=== PATIENT | female | born 2005 | race Caucasian/White ===

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

== ENCOUNTER 2023-05-15 06:32 | Inpatient (IN) ==
[2023-05-15] MEDS ORDERED: OXYTOCIN 30 UNITS/500 ML BAG IV PRN ×2 (08:02)
[2023-05-15] MEDS ORDERED: LIDOCAINE 1% LOCAL 20 ML VIAL INFIL PRN (08:02)
--- NOTE | 2023-05-15 08:11 | History & Physical Report ---
Date of Service May 15, 2023 Assessment & Plan (1) Amniotic fluid leaking: Plan: IUP at term with SPROM of clear fluid- grossly ruptured/ GBS negative will start pitocing induction epidural when requested anticipate vaginal History of Present Illness Primary Care Provider: NO PCP patient is a 18 yo EDC 05/16 who presents with gush of clear fluid at 0400 today. she has had some cramping since then but no regular contractions. complicated by GDM but non-compliant with checking blood sugars. last growth scan was AGA at 66%tile. good movement. GBS-negative Allergies Allergy/AdvReac Type Severity Reaction Status Date / Time No Known Drug Allergies Allergy Unknown Verified 05/15/23 07:08 Home Medications Medication Instructions Recorded Confirmed Type prenat.vits,rosangela,mkx-xrxa-fqjgk 1 tab PO DAILY 10/23/22 05/15/23 History pyridoxine (vitamin B6) PO 10/23/22 05/13/23 History omeprazole 40 mg capsule,delayed 40 mg PO DAILY #30 caps 04/12/23 05/15/23 Rx release Patient History Medical History (Updated 05/15/23 @ 08:14 by Rosy Simons MD, FACOG) Cardiac murmur no problems currently -- hx as an infant. Varicella vaccination Surgical History H/O wisdom tooth extraction (12/08/19) Removal of [place] Teeth Dr. Joseph 12-08-19 History of tonsillectomy and adenoidectomy 08/15/[address] Appiah Family History Uncle Family hx of colon cancer Grandfather (Paternal) Family hx of colon cancer Aunt FHx: breast cancer Breast cancer Grandmother (Maternal) Breast cancer Other No family history of adverse response to anesthesia Denies family history of Ovarian cancer Social History (Updated 10/23/22 @ 11:11 by Monie Thrasher) Smoking Status: Former smoker Tobacco Type: E-cigarettes / Vaping Second Hand Exposure: No; Do You Dip or Chew Tobacco: No; Hx Alcohol Use: No Hx Substance Use: No Preferred Language: Scottish Communication Ability: Effective Punch Press Operator Required: No Beliefs That Will Affect Care: None marital status: Single marital status details: wellington Panda ([phone] Current Living Situation: Parent Current Living Situation Comment: lives with parents, dogs current occupational status: employed current occupation: [employer] Feels Safe at Home: Yes Safety Concerns: Feels Safe At This Time Assistive Devices: Glasses Review of Systems All systems reviewed & are unremarkable except as noted in HPI & below Physical Exam Constitutional: WD/WN, vitals as above Psychiatric: A+Ox3, euthymic affect Genitourinary: OB Exam Abdomen: + vertex, + estimated weight (7-8 pounds) and + irregular contractions Manual OB Exam: + cervical dilation 1 cm (1-2 cm), + cervical effacement 50%, + station -2 and + amniotic fluid clear and nitrazine positive OB Exam Monitor Tracing: + external FHT monitor used, + external uterine monitor used, + category I and + normal FHT variability Results & Data Vital Signs (Past 12 Hours) Vital Signs Temp Pulse Resp BP 05/15/23 07:17 98.8 F 92 H 18 127/62 05/15/23 07:03 92 H 127/62 Coding Level of Care Code None Diagnoses Amniotic fluid leaking O42.90
[2023-05-15 08:43] LABS: Hematocrit (blood only) 33.8 % (37.0-47.0); Hemoglobin 11.4 g/dl (12.0-16.0); Mean Corpuscular Hemoglobin 28.3 pg (25.0-34.0); Mean Corpuscular Hgb Conc 33.7 g/dL (32.0-36.0); Mean Corpuscular Volume 83.9 fL (80.0-100.0); Mean Platelet Volume 12.9 fL (9.4-12.4); Platelet Count 197 K/uL (130-400); RDW Coefficient of Variation 12.8 % (11.5-14.5); RDW Standard Deviation 38.8 fL (36.4-46.3); Red Blood Count 4.03 M/uL (4.20-5.40); White Blood Count 10.67 K/ul (4.8-10.8)
[2023-05-15] MEDS: LACTATED RINGER'S 1,000 ML IV PRN ×2 (08:44→13:40)
[2023-05-15] MEDS ORDERED: fentaNYL citrate PF 100 MCG/2 ML VIAL ONE ×2 (12:25→16:24)
[2023-05-15] MEDS ORDERED: SODIUM CHLORIDE 0.9% PF INJ 10 ML VIAL ONE (12:25)
[2023-05-15] MEDS ORDERED: BUPIVACAINE 0.25% PF 30 ML VIAL ONE (12:25)
[2023-05-15] MEDS ORDERED: ePHEDrine sulfate 50 MG/ML AMP ONE (12:25)
[2023-05-15] MEDS ORDERED: LIDOCAINE 2%/EPINEPHRINE 1:200,000 20 ML PF ONE ×2 (12:25→16:23)
[2023-05-15] MEDS ORDERED: fentaNYL 2MCG/ML ROPIVACAINE 1.25MG/ML 100 ML BAG EPI ONE (12:26)
--- NOTE | 2023-05-15 12:39 | Anesthesiology Consultation ---
Date of Service May 15, 2023 Assessment & Plan Chart Review Chart Review: Acceptable Risk for Surgery, Patient NOT seen in Pre Admission Testing and Acceptable Risk for Labor Epidural Consults Requested none ASA ASA2 Proposed Anesthesia Anesthesia Type: Labor Epidural and CSE History Height/Weight Height: 5 ft 1 in Weight: 80.739 kg Allergies Allergy/AdvReac Type Severity Reaction Status Date / Time No Known Drug Allergies Allergy Unknown Verified 05/15/23 07:08 Medications Home Medications Medication Instructions Recorded Confirmed Last Taken prenat.vits,rosangela,fzi-mqbu-lnizn 1 tab PO DAILY 10/23/22 05/15/23 05/14/23 19:00 pyridoxine (vitamin B6) PO 10/23/22 05/13/23 Unknown omeprazole 40 mg capsule,delayed 40 mg PO DAILY #30 caps 04/12/23 05/15/23 05/15/23 06:00 release Active Medications Generic Name Dose Route Start Last Admin Trade Name Freq PRN Reason Stop Dose Admin Oxytocin 30 units in 500 mls @ 16 mls/hr 05/15/23 08:02 05/15/23 12:15 Pitocin IV 05/17/23 08:01 0.96 units/hr .Q24H PRN 16 mls/hr Labor Induction/Augmentation Titration Protocol 0.96 UNITS/HR Lactated Ringer's 1,000 mls @ 125 mls/hr 05/15/23 08:02 05/15/23 11:35 Lr IV 05/17/23 08:01 125 mls/hr .Q8H PRN Infusion L&D Protocol Protocol Past Medical History Medical History Cardiac murmur no problems currently -- hx as an . Varicella vaccination vapes obese anemia Exercise / Class Metabolic Activity II 4-5 Yardwork/Stairs/Walk up hill Past Family History Family History Uncle Family hx of colon cancer Grandfather (Paternal) Family hx of colon cancer Aunt FHx: breast cancer Breast cancer Grandmother (Maternal) Breast cancer Other No family history of adverse response to anesthesia Denies family history of Ovarian cancer Past Surgical History Surgical History H/O wisdom tooth extraction (12/08/19) Removal of [place] Teeth Dr. Joseph 12-08-19 History of tonsillectomy and adenoidectomy 08/15/[address] Appiah Past Anesthesia History No Hx of Anesthesia Complications and No Family Hx of Anesthesia Complications History of PONV No Hx of PONV and No Hx of Motion Sickness Social History Smoking Status: Former smoker Do You Dip or Chew Tobacco: No Hx Alcohol Use: No Hx Substance Use: No substance use type: former substance user Physical Exam Vital Signs Last Vital Signs Temp 36.4 C L 05/15/23 12:15 Pulse 58 L 05/15/23 12:16 Resp 18 05/15/23 12:15 BP 140/80 05/15/23 12:16 Testing Laboratory Results 05/15/23 08:24 05/15/23 08:17 POC Glucose 81
[2023-05-15] MEDS ORDERED: ONDANSETRON INJ 2 MG/ML 2 ML VIAL IV PRN ×2 (13:18→17:37)
[2023-05-15] MEDS ORDERED: fentaNYL 2MCG/ML ROPIVACAINE 1.25MG/ML 100 ML BAG EPI PRN (13:18)
[2023-05-15] MEDS ORDERED: SODIUM CHLORIDE 0.9% PF INJ 10 ML VIAL EPI STA (13:18)
[2023-05-15] MEDS ORDERED: NALOXONE HCL 0.4 MG/1 ML VIAL/CARP IV PRN ×2 (13:18→17:37)
[2023-05-15] MEDS ORDERED: SODIUM CHLORIDE 0.9% PF INJ 10 ML VIAL EPI PRN (13:18)
[2023-05-15] MEDS ORDERED: fentaNYL citrate PF 100 MCG/2 ML VIAL EPI STA (13:18)
[2023-05-15] MEDS ORDERED: ePHEDrine sulfate 50 MG/ML AMP IV PRN ×2 (13:18→17:37)
[2023-05-15] MEDS ORDERED: NALOXONE HCL 1 MG in SODIUM CHLORIDE 0.9% 1000ML 1,000 ML IV PRN ×2 (13:18→17:37)
[2023-05-15] MEDS ORDERED: BUPIVACAINE 0.25% PF 30 ML VIAL EPI STA (13:18)
[2023-05-15] MEDS ORDERED: ROPIVACAINE 0.5% PF 5 MG/ML 20 ML VIAL EPI PRN (13:18)
[2023-05-15] MEDS ORDERED: diphenhydrAMINE 50 MG/ML VIAL IV PRN ×2 (13:18→17:37)
[2023-05-15] MEDS ORDERED: BUPIVACAINE 0.25% PF 30 ML VIAL EPI PRN (13:18)
[2023-05-15] MEDS ORDERED: PROMETHAZINE HCL 25 MG in SODIUM CHLORIDE 0.9% 50 ML IV PRN ×2 (13:18→17:37)
[2023-05-15] MEDS ORDERED: fentaNYL citrate PF 100 MCG/2 ML VIAL EPI PRN (13:18)
[2023-05-15] MEDS ORDERED: LIDOCAINE 2%/EPINEPHRINE 1:200,000 20 ML PF EPI STA (13:18)
[2023-05-15] MEDS ORDERED: NALBUPHINE HCL INJ 10 MG/ML AMP IV PRN ×2 (13:18→17:37)
[2023-05-15] MEDS ORDERED: LIDOCAINE 2% MPF LOCAL 5 ML VIAL EPI PRN (13:18)
--- NOTE | 2023-05-15 14:25 | Labor Progress Brief Note ---
Date of Service May 15, 2023 Patient is on Pitocin and has requested an epidural she is now 3 cm she has had several deep late pattern decelerations. Her cervix is 3 cm there is bulging 4 singh which are ruptured for clear fluid 80% effaced -2 I discussed with the patient the challenge always will be is whether the baby will tolerate labor and Pitocin augmentation or not clearly if the repeat D cells continue to repeat themselves we will have few options but this was discussed with the patient Assessment & Plan Admission and Anticipated Discharge Date Admission Date: May 15, 2023 Results & Data Vital Signs (Past 12 Hours) Vital Signs Temp Pulse Resp BP Pulse Ox 05/15/23 07:17 98.8 F 92 H 18 127/62 05/15/23 14:15 60 05/15/23 14:15 98.2 F 18 112/57 L 05/15/23 14:00 64 05/15/23 14:00 123/65 05/15/23 13:50 52 L 05/15/23 13:50 127/67 05/15/23 13:35 58 L 05/15/23 13:35 125/67 05/15/23 13:17 16 05/15/23 13:17 97.5 F L 16 05/15/23 13:18 77 05/15/23 13:18 121/56 L 05/15/23 13:13 91 H 05/15/23 13:13 129/73 05/15/23 13:10 81 05/15/23 13:10 134/73 05/15/23 13:02 84 L 05/15/23 13:02 104 H 05/15/23 12:59 99 05/15/23 12:59 89 05/15/23 12:54 98 05/15/23 12:54 83 05/15/23 12:49 98 05/15/23 12:49 75 05/15/23 12:44 99 05/15/23 12:44 82 05/15/23 12:15 18 05/15/23 12:15 97.5 F L 18 05/15/23 12:16 58 L 05/15/23 12:16 140/80 05/15/23 11:13 64 05/15/23 11:13 137/74 05/15/23 10:48 20 05/15/23 10:48 97.5 F L 20 05/15/23 10:15 18 05/15/23 10:15 98.2 F 18 05/15/23 10:15 77 05/15/23 10:15 110/61 05/15/23 09:46 18 05/15/23 09:46 98.2 F 18 05/15/23 08:50 18 05/15/23 08:50 98.4 F 18 05/15/23 08:50 86 05/15/23 08:50 119/77 05/15/23 07:03 92 H 127/62 Coding Level of Care Code None Diagnoses
--- NOTE | 2023-05-15 15:59 | Labor Progress Brief Note ---
Date of Service May 15, 2023 Repetitive late decelerations keep recurring the contractions are still not ideal they can be spaced 5 to 6 minutes apart they are having initially significantly D cells and now more shallow late decelerations she is 3 cm still I have talked about continuing labor or proceeding to section I have reviewed the tracing and the slow progress with the patient and her family have also discussed that at this stage the baby is not in acute distress it is just slow progress with some repetitive late decelerations they are dis cussing as a family now I did discuss the risks of section section. The patient was counseled to the nature of the procedure including alternatives such as labor. Risks were discussed including bleeding infection injury to bowel bladder ureter vessels and even baby. Deep Vein thrombosis, pulmonary embolus discussed. Breakdown of incision reviewed. Deep vein thrombosis pulmonary embolus hernia and failure of the incision to heal were discussed Patient verbalized understanding of this and was given ample time to ask questions Assessment & Plan Admission and Anticipated Discharge Date Admission Date: May 15, 2023 Results & Data Vital Signs (Past 12 Hours) Vital Signs Temp Pulse Resp BP Pulse Ox 05/15/23 07:17 98.8 F 92 H 18 127/62 05/15/23 15:47 60 05/15/23 15:47 113/59 L 05/15/23 15:31 56 L 05/15/23 15:31 92/50 L 05/15/23 15:16 54 L 05/15/23 15:16 107/52 L 05/15/23 15:00 18 05/15/23 15:00 97.7 F 18 05/15/23 15:00 59 L 05/15/23 15:00 106/56 L 05/15/23 14:45 57 L 05/15/23 14:45 94/53 L 05/15/23 14:32 66 05/15/23 14:32 104/56 L 05/15/23 14:15 60 05/15/23 14:15 98.2 F 18 112/57 L 05/15/23 14:00 64 05/15/23 14:00 123/65 05/15/23 13:50 52 L 05/15/23 13:50 127/67 05/15/23 13:35 58 L 05/15/23 13:35 125/67 05/15/23 13:17 16 05/15/23 13:17 97.5 F L 16 05/15/23 13:18 77 05/15/23 13:18 121/56 L 05/15/23 13:13 91 H 05/15/23 13:13 129/73 05/15/23 13:10 81 05/15/23 13:10 134/73 05/15/23 13:02 84 L 05/15/23 13:02 104 H 05/15/23 12:59 99 05/15/23 12:59 89 05/15/23 12:54 98 05/15/23 12:54 83 05/15/23 12:49 98 05/15/23 12:49 75 05/15/23 12:44 99 05/15/23 12:44 82 05/15/23 12:15 18 05/15/23 12:15 97.5 F L 18 05/15/23 12:16 58 L 05/15/23 12:16 140/80 05/15/23 11:13 64 05/15/23 11:13 137/74 05/15/23 10:48 20 05/15/23 10:48 97.5 F L 20 05/15/23 10:15 18 05/15/23 10:15 98.2 F 18 05/15/23 10:15 77 05/15/23 10:15 110/61 05/15/23 09:46 18 05/15/23 09:46 98.2 F 18 05/15/23 08:50 18 05/15/23 08:50 98.4 F 18 05/15/23 08:50 86 05/15/23 08:50 119/77 05/15/23 07:03 92 H 127/62 Coding Level of Care Code None Diagnoses
[2023-05-15] MEDS ORDERED: OXYTOCIN 10 UNITS/ML VIAL ONE (16:26)
[2023-05-15] MEDS ORDERED: LACTATED RINGER'S 1,000 ML IV SCH (16:30)
[2023-05-15] MEDS ORDERED: MoRPHine SULFATE PF 1 MG/ML 10 ML AMP/VIAL ONE (17:21)
[2023-05-15 17:26] LABS: Base Excess Cord Arterial Bld 0.5 mEq/L (-9-1.8); CO2 Cord Arterial Blood 50 mmHg (39.1-73.5); HCO3 Cord Arterial Blood 27 mmol/L (19.7-28.5); Oxygen Sat Cord Arterial Blood < 60.0 % (<60); PO2 Cord Arterial Blood 15 mmHg (4.1-31.7); pH Cord Arterial Blood 7.34 (7.1-7.38)
[2023-05-15 17:27] LABS: Base Excess Cord Venous Blood -1.2 mEq/L (-7.7-1.9); Cord Venous Blood HCO3 24 mmol/L (18.4-26.8); Cord Venous Blood PCO2 39 mmHg (30.4-57.2); Cord Venous Blood PO2 22 mmHg (14.1-43.3); Cord Venous Blood pH 7.39 (7.20-7.44); O2 Saturation Cord Venous Bld < 60.0 % (<68)
[2023-05-15] MEDS ORDERED: SENNA 8.6 MG TAB PO PRN (17:29)
[2023-05-15] MEDS ORDERED: BENZOCAINE 20% SPRY 85 APPLN/85 GM CAN EXT PRN (17:29)
[2023-05-15] MEDS ORDERED: MAGNESIUM HYDROXIDE SUSP 30 ML UDC PO PRN (17:29)
[2023-05-15] MEDS ORDERED: HYDROCORTISONE ACETATE 25 MG SUPP PR PRN (17:29)
[2023-05-15] MEDS ORDERED: DIPHTHERIA/TETANUS/PERTUSSIS Vaccine (Tdap, Age 7+yrs) 0.5mL SYR/VL IM ONE (17:29)
--- NOTE | 2023-05-15 17:29 | Operative Report ---
PG Post Operative Report Pre & Post Diagnosis Operation Date: 05/15/23 16:45 Pre-Op Diagnosis: Intolerance to Labor Post-Op Diagnosis: Same; Delivery of a live male child at I identified the patient and participated in the time-out.: Yes Procedure Operation Date: 05/15/23 16:45 Actual Procedures p Section in LD; Primary lower uterine transverse section for the of a live boy at 1703(Bilateral) - Rg Mercado MD, FACOG Surgeon Rg Mercado MD, FACOG Keypuncher Dwayne Lai RN Estimated Blood Loss 600 Findings Consistent with Post-Op Diagnosis Specimens Cord blood and cord gases Description of Procedure Regional anesthetic had been given by anesthesia patient was prepped and draped with a leftward tilt preoperative antibiotics had been given in appropriate timing by anesthesiology. Once the prep was allowed to fully dry timeout was performed. Pickups with teeth were used to test the incision area was found to be adequate for incision as the patient did not feel sharp pain. Scalpel was used to make a Pfannenstiel incision on the lower abdomen. We then cut through the subcutaneous fat down to the level of the anterior rectus sheath fascia this was cut in the midline and then extended laterally with the curved Olguin scissors. At this stage we then placed 2 Neal clamps on the anterior aspect of the fascia. Using the curved Olguin's we are able to dissect the fascia superiorly away from the rectus muscles. Care was taken to maintain hemostasis. Neal clamps were then placed to the inferior aspect of the anterior sheath of the fascia. Fascia was then dissected away from the rectus muscles inferiorly towards the pubic bone. A Neal was then placed in the midline both inferiorly and superiorly. This was to allow exposure by retraction rectus muscles were in the midline with were then able to cut through the peritoneum and then enter the peritoneal cavity. Opening was enlarged to allow exposure of the peritoneal cavity both superiorly and inferiorly. Once adequate space was obtained a bladder retractor was placed to expose the lower segment Metzenbaums were used to dissect the bladder flap inferiorly away from the uterus. This was done sharply bladder retractor was then repositioned to expose the lower segment of the uterus Fresh scalpel was used to make a low transverse incision on the uterus. Uterus was then entered bluntly with the operators finger, membranes ruptured and the opening was enlarged using the operators fingers bluntly pulling superiorly and inferiorly to allow exposure. Baby was delivered by first flexion of the head elevation of the head out of the pelvis and then pressure by the marketing support assistant on the maternal abdomen. Baby's head was then delivered mouth and then nares were suctioned and then using gentle traction the baby was fully delivered. Live vigorous . Fluid was clear cord clamped and cut cord gases obtained cord blood obtained baby handed to pediatrics. Placenta removed was removed with traction we ensure the entire placenta was removed with a moist lap sponge into the uterus Uterus was then exteriorized. IV Pitocin had been started by anesthesia tone improved there were no extensions the uterus was then closed using 0 Monocryl in a 2 layer closure the first layer closed in a running locked fashion from left to right and then a second closure from left to right in a running nonlocked fashion. At this stage hemostasis was excellent. Uterus was placed back in the peritoneal cavity with suction irrigation out and inspection of the uterus at this stage revealed excellent hemostasis Retractors were removed urine color was clear at this stage of the case we insp ected the rectus muscles they were hemostatic fascia was closed with 0 Vicryl subcutaneous fat was irrigated and closed with 3-0 Vicryl skin closed with 4-0 subcuticular Monocryl Bilateral adnexa and uterus were normal eleazar dressing was applied I attest to the content of the Intraoperative Record and any orders documented therein. Any exceptions are noted below. OB Procedure Charges 74637
[2023-05-15] MEDS ORDERED: NALOXONE HCL 0.08 MG in SYRINGE 1.8 ML IV PRN (17:37)
[2023-05-15] MEDS ORDERED: MoRPHine SULFATE PF 1 MG/ML 10 ML AMP/VIAL EPI ONE (17:37)
[2023-05-15] MEDS ORDERED: LACTATED RINGER'S 500 ML IV PRN (17:37)
--- NOTE | 2023-05-15 17:37 | Anesthesia Procedure Note ---
Date of Service May 15, 2023 Anesthesia Post Epidural Note Vital Signs Vital Signs: Temp Pulse Resp BP Pulse Ox 36.5 C 79 18 106/61 100 05/15/23 15:00 05/15/23 17:35 05/15/23 15:00 05/15/23 17:35 05/15/23 17:35 Pain Intensity Abdomen: Pain Intensity: 8 Notes Mental Status: alert / awake / arousable Nausea / Vomiting: adequately controlled Pain: adequately controlled Airway Patency, RR, SpO2: stable & adequate BP & HR: stable & adequate Hydration State: stable & adequate Neuraxial Anesthesia: was administered and sensory block is resolving Anesthetic Complications: no major complications apparent Epidural: Removed without complications and With tip intact
[2023-05-15] MEDS ORDERED: NO NARCOTICS OR SEDATIVES SCH (17:45)
[2023-05-15] MEDS ORDERED: DC INTRASPINAL MORPHINE SCH (17:45)
[2023-05-15] MEDS ORDERED: SODIUM CHLORIDE 0.9% 1000ML 1,000 ML IV SCH (17:45)
[2023-05-15] MEDS: OXYTOCIN 20 UNITS in LACTATED RINGER'S 1,000 ML IV SCH (18:48)
--- NOTE | 2023-05-15 18:49 | Anesthesiology Progress Note ---
Date of Service May 15, 2023 Anesthesia Post Procedure Vital Signs Vital Signs: Temp Pulse Resp BP Pulse Ox 05/15/23 07:17 37.1 C 92 H 18 127/62 05/15/23 18:45 99 05/15/23 18:45 73 05/15/23 18:40 99 05/15/23 18:40 77 05/15/23 18:35 99 05/15/23 18:35 71 05/15/23 18:35 117/59 L 05/15/23 18:30 100 05/15/23 18:30 82 05/15/23 18:25 99 05/15/23 18:25 83 05/15/23 18:25 71 05/15/23 18:25 105/58 L 05/15/23 18:20 99 05/15/23 18:20 89 05/15/23 18:15 100 05/15/23 18:15 74 05/15/23 18:15 104/56 L 05/15/23 18:10 100 05/15/23 18:10 76 05/15/23 18:05 100 05/15/23 18:05 82 05/15/23 18:06 82 05/15/23 18:06 90/50 L 05/15/23 18:00 98 05/15/23 18:00 73 05/15/23 17:55 99 05/15/23 17:55 78 05/15/23 17:55 107/62 05/15/23 17:50 100 05/15/23 17:50 70 05/15/23 17:45 100 05/15/23 17:45 73 05/15/23 17:43 77 05/15/23 17:43 109/62 05/15/23 17:40 100 05/15/23 17:40 85 05/15/23 17:35 100 05/15/23 17:35 79 05/15/23 17:35 76 05/15/23 17:35 106/61 05/15/23 16:42 100 H 05/15/23 16:42 121/67 05/15/23 16:30 139 H 05/15/23 16:30 115/90 05/15/23 16:15 103 H 05/15/23 16:15 151/74 H 05/15/23 16:01 68 05/15/23 16:01 98/55 L 05/15/23 15:47 60 05/15/23 15:47 113/59 L 05/15/23 15:31 56 L 05/15/23 15:31 92/50 L 05/15/23 15:16 54 L 05/15/23 15:16 107/52 L 05/15/23 15:00 18 05/15/23 15:00 36.5 C 18 05/15/23 15:00 59 L 05/15/23 15:00 106/56 L 05/15/23 14:45 57 L 05/15/23 14:45 94/53 L 05/15/23 14:32 66 05/15/23 14:32 104/56 L 05/15/23 14:15 60 05/15/23 14:15 36.8 C 18 112/57 L 05/15/23 14:00 64 05/15/23 14:00 123/65 05/15/23 13:50 52 L 05/15/23 13:50 127/67 05/15/23 13:35 58 L 05/15/23 13:35 125/67 05/15/23 13:17 16 05/15/23 13:17 36.4 C L 16 05/15/23 13:18 77 05/15/23 13:18 121/56 L 05/15/23 13:13 91 H 05/15/23 13:13 129/73 05/15/23 13:10 81 05/15/23 13:10 134/73 05/15/23 13:02 84 L 05/15/23 13:02 104 H 05/15/23 12:59 99 05/15/23 12:59 89 05/15/23 12:54 98 05/15/23 12:54 83 05/15/23 12:49 98 05/15/23 12:49 75 05/15/23 12:44 99 05/15/23 12:44 82 05/15/23 12:15 18 05/15/23 12:15 36.4 C L 18 05/15/23 12:16 58 L 05/15/23 12:16 140/80 05/15/23 11:13 64 05/15/23 11:13 137/74 05/15/23 10:48 20 05/15/23 10:48 36.4 C L 20 05/15/23 10:15 18 05/15/23 10:15 36.8 C 18 05/15/23 10:15 77 05/15/23 10:15 110/61 05/15/23 09:46 18 05/15/23 09:46 36.8 C 18 05/15/23 08:50 18 05/15/23 08:50 36.9 C 18 05/15/23 08:50 86 05/15/23 08:50 119/77 05/15/23 07:03 92 H 127/62 Pain Intensity Abdomen: Pain Intensity: 8 Transfer of Care Handoff Completed per policy Notes Mental Status: alert / awake / arousable Patient Amnestic to Procedure: Yes Nausea / Vomiting: adequately controlled Pain: adequately controlled Airway Patency, RR, SpO2: stable & adequate BP & HR: stable & adequate Hydration State: stable & adequate Neuraxial Anesthesia: was administered (epidural anesthesia) and sensory block is resolving Anesthetic Complications: no major complications apparent
[2023-05-15] MEDS: LACTATED RINGER'S 1,000 ML IV SCH (18:50)
[2023-05-15] MEDS: KETOROLAC 30 MG/ML VIAL IV PRN (20:55)
[2023-05-15] MEDS: SIMETHICONE 80 MG CHEW PO SCH (20:55)
[2023-05-15] MEDS: DOCUSATE SODIUM 100 MG CAP PO SCH (20:56)
[2023-05-16] MEDS: LACTATED RINGER'S 1,000 ML IV SCH (03:28)
[2023-05-16] MEDS: OXYTOCIN 20 UNITS in LACTATED RINGER'S 1,000 ML IV SCH (03:28)
[2023-05-16] MEDS: KETOROLAC 30 MG/ML VIAL IV PRN (05:39)
[2023-05-16] MEDS ORDERED: CITRIC ACID/SODIUM CITRATE 15 ML UDC PO SCH (06:00)
[2023-05-16 07:03] LABS: Basophils # (auto) 0.02 K/uL (0-0.2); Basophils % (auto) 0.2 %; Eosinophils # (auto) 0.04 K/uL (0-0.50); Eosinophils % (auto) 0.4 %; Hematocrit (blood only) 28.7 % (37.0-47.0); Hemoglobin 9.6 g/dl (12.0-16.0); Immature Granulocytes # (auto) 0.06 K/uL (0.01-0.20); Immature Granulocytes % (auto) 0.5 %; Lymphocytes # (auto) 2.21 K/uL (1.2-3.4); Lymphocytes % (auto) 20.2 %; Mean Corpuscular Hemoglobin 28.1 pg (25.0-34.0); Mean Corpuscular Hgb Conc 33.4 g/dL (32.0-36.0); Mean Corpuscular Volume 83.9 fL (80.0-100.0); Mean Platelet Volume 12.9 fL (9.4-12.4); Monocytes # (auto) 1.07 K/uL (0.11-0.59); Monocytes % (auto) 9.8 %; Neutrophils # (auto) 7.53 K/uL (1.40-6.50); Neutrophils % (auto) 68.9 %; Platelet Count 147 K/uL (130-400); RDW Coefficient of Variation 12.9 % (11.5-14.5); RDW Standard Deviation 39.1 fL (36.4-46.3); Red Blood Count 3.42 M/uL (4.20-5.40); White Blood Count 10.93 K/ul (4.8-10.8)
--- NOTE | 2023-05-16 07:40 | Obstetrical Progress Note ---
Date of Service May 16, 2023 Assessment & Plan (1) Amniotic fluid leaking: Postoperative day #1 from section she still has her Hewitt catheter when she has a eleazar dressing on she reports no extremity pain bleeding is moderate we will continue to follow Subjective Ambulation: ambulating normally Voiding: hewitt catheter in place Passing Gas:: No Diet Tolerance:: regular diet Lochia:: Small Results & Data Vital Signs (Past 12 Hours) Vital Signs Temp Pulse Resp BP Pulse Ox O2 Del Method 05/16/23 06:05 18 99 05/16/23 05:10 18 99 05/16/23 05:10 98.6 F 69 18 107/54 L 99 Room Air 05/16/23 04:20 16 97 05/16/23 03:05 16 97 05/16/23 02:10 18 99 05/16/23 01:15 18 99 05/16/23 00:30 18 99 05/15/23 23:35 18 99 05/16/23 00:30 98.6 F 84 18 109/65 99 Room Air 05/15/23 22:30 18 100 05/15/23 20:45 18 99 05/15/23 20:45 98.4 F 72 18 116/60 99 Room Air
[2023-05-16] MEDS: DOCUSATE SODIUM 100 MG CAP PO SCH ×2 (09:27→21:38)
[2023-05-16] MEDS: SIMETHICONE 80 MG CHEW PO SCH ×4 (09:27→21:38)
[2023-05-16] MEDS: PRENATAL VITAMIN 1 TAB PO SCH ×2 (09:27→09:31)
[2023-05-16] MEDS: FERROUS SULFATE 325 MG TAB PO SCH (09:27)
[2023-05-16] MEDS: PANTOprazole 40 MG TAB PO SCH (09:27)
[2023-05-16] MEDS ORDERED: diphenhydrAMINE Capsule 25 MG CAP PO PRN (11:38)
[2023-05-16] MEDS ORDERED: PROMETHAZINE HCL 25 MG in SODIUM CHLORIDE 0.9% 50 ML IV PRN (11:38)
[2023-05-16] MEDS ORDERED: diphenhydrAMINE 50 MG/ML VIAL IV PRN (11:38)
[2023-05-16] MEDS ORDERED: KETOROLAC 30 MG/ML VIAL IV PRN (11:38)
[2023-05-16] MEDS ORDERED: ONDANSETRON INJ 2 MG/ML 2 ML VIAL IV PRN (11:38)
[2023-05-16] MEDS: IBUPROFEN 600 MG TAB PO PRN ×3 (12:00→21:38)
[2023-05-16] MEDS: oxyCODONE/ACETAMINOPHEN 5mg/325mg TAB PO PRN ×3 (12:01→21:38)
--- NOTE | 2023-05-16 19:36 | Gynecologic Progress Note ---
Date of Service May 16, 2023 Assessment & Plan Admission and Anticipated Discharge Date Admission Date: May 15, 2023 Subjective Update I was informed by nursing of dayshift that the patient had left for 20 minutes off the floor without asking the patient has requested leave for smoking breaks I have not written an order for this and that the patient should be with her baby and should be recovering from section at this stage nursing working to try to educate the patient the importance of being with the baby and recovering from her major surgery Results & Data Vital Signs (Past 12 Hours) Vital Signs Temp Pulse Pulse Pulse Resp BP BP 05/16/23 15:49 98.2 F 86 18 111/73 05/16/23 12:02 97.9 F 67 18 05/16/23 09:14 98.4 F 77 20 110/66 05/16/23 08:08 05/16/23 07:58 14 05/16/23 07:58 98.4 F 63 14 BP Pulse Ox Pulse Ox O2 Del Method O2 Del Method 05/16/23 15:49 05/16/23 12:02 119/69 98 Room Air 05/16/23 09:14 99 05/16/23 08:08 96 Room Air 05/16/23 07:58 96 05/16/23 07:58 95/35 L 96 Room Air PG Care Time/CCT Total # of Minutes Spent Total Time Spent with Patient: Total time spent is greater than 50% in coordination of care (as documented) at patient's floor/unit and/or counseling patient: Coding Level of Care Code None Diagnoses
[2023-05-16] MEDS ORDERED: bisacodyL 5 MG TABEC PO SCH (20:00)
[2023-05-17] MEDS: IBUPROFEN 600 MG TAB PO PRN ×3 (01:05→13:15)
[2023-05-17] MEDS: oxyCODONE/ACETAMINOPHEN 5mg/325mg TAB PO PRN ×3 (01:05→13:15)
[2023-05-17 06:13] LABS: Hematocrit (blood only) 28.1 % (37.0-47.0)
--- NOTE | 2023-05-17 06:47 | Obstetrical Progress Note ---
Date of Service May 17, 2023 Subjective Ambulation: ambulating normally Voiding: no voiding problems Passing Gas:: Yes Diet Tolerance:: regular diet Lochia:: Moderate (less and less every day) Feeding Type:: breast feeding (and formula feeding) Current Pain Level(1-10): 3 (incision site krishnamurthy a bit with standing, ) 18 yo F s/p C/S day 2 presents with mild pain around incision site. Review of Systems All systems reviewed & are unremarkable except as noted in HPI & below Results & Data Vital Signs (Past 12 Hours) Vital Signs Temp Pulse Resp BP Pulse Ox O2 Del Method 05/17/23 01:05 36.5 C 84 18 107/63 99 Room Air 05/16/23 21:20 36.6 C 83 18 124/72 99 Room Air
[2023-05-17] MEDS: DOCUSATE SODIUM 100 MG CAP PO SCH (08:37)
[2023-05-17] MEDS: SIMETHICONE 80 MG CHEW PO SCH ×2 (08:37→13:15)
[2023-05-17] MEDS: PRENATAL VITAMIN 1 TAB PO SCH (08:37)
[2023-05-17] MEDS: FERROUS SULFATE 325 MG TAB PO SCH (08:37)
[2023-05-17] MEDS: PANTOprazole 40 MG TAB PO SCH (08:38)
[2023-05-17] MEDS ORDERED: bisacodyL 10 MG SUPP PR PRN (17:27)
== END 2023-05-17 15:08 | disposition home or self-care (01) | DRG 788 ==
LOC: OPB 06:32 → 4S1 06:37 → 4E2 20:15